=== PATIENT | male | born 1960 | race African-American/Black ===

== ENCOUNTER 2021-01-18 00:46 | Emergency (ER) | payer OTHER ==
[~2021-01-18] VITALS: Ht 172.7 cm; Wt 83.3 kg
[2021-01-18] MEDS ORDERED: SYNT175T2 PO (00:57)
[2021-01-18] MEDS ORDERED: NOXI1TAB PO (00:58)
[2021-01-18] MEDS ORDERED: NS 1,000 ML IV ONE ×2 (01:00→02:20)
[2021-01-18 01:28] LABS: VENOUS BASE EXCESS -1.7 (-2.0-2.0); VENOUS HCO3 25.2 MEQ/L (23.0-27.0); VENOUS PARTIAL PRESSURE CO2 53.3 mmHg (38.0-50.0); VENOUS PARTIAL PRESSURE O2 169.1 mmHg (30.0-50.0); VENOUS PH 7.293 UNITS (7.330-7.430); VENOUS STANDARD HCO3 23.1 MEQ/L; VENOUS TOTAL CO2 26.9 MEQ/L (24.0-28.0)
[2021-01-18 01:33] LABS: HEMATOCRIT 33.4 % (42.0-52.0); HEMOGLOBIN 9.9 g/dl (13.5-17.5); MEAN CORPUSCULAR HEMOGLOBIN 25.4 pg (27.0-33.0); MEAN CORPUSCULAR HGB CONC 29.6 g/dl (32.0-36.5); MEAN CORPUSCULAR VOLUME 85.6 fl (80.0-96.0); PLATELET COUNT, AUTOMATED 157 10^3/uL (150-450); WHITE BLOOD COUNT 10.8 10^3/uL (4.0-10.0)
[2021-01-18 01:42] LABS: OSMOLALITY SERUM 295 MOSM/KG (275-295)
[2021-01-18 01:43] LABS: LYMPHOCYTES 13 % (16-44); NEUTROPHILS 87 % (28-66)
[2021-01-18 01:44] LABS: ANISOCYTOSIS 2+; PLATELET ESTIMATE NORMAL (NORMAL)
--- NOTE | 2021-01-18 01:44 | REPVR ---
PROCEDURE INFORMATION: Exam: CT Head Without Contrast Exam date and time: 01/18/2021 1:28 AM Age: 60 years old Clinical indication: Injury or trauma; Fall; Blunt trauma (contusions or hematomas); Additional info: Overdose, fall TECHNIQUE: Imaging protocol: Computed tomography of the head without contrast. Radiation optimization: All CT scans at this facility use at least one of these dose optimization techniques: automated exposure control; mA and/or kV adjustment per patient size (includes targeted exams where dose is matched to clinical indication); or iterative reconstruction. COMPARISON: No relevant prior studies available. FINDINGS: There is no evidence of acute intracranial hemorrhage, extra axial fluid collection or hematoma. There is no midline shift or herniation. The ventricles are not dilated. Septum cavum pellucidum et vergae incidentally noted. No evidence of pneumocephalus. No CT findings are seen at the current time to suggest changes of acute territorial vascular infarction. Note is made however, that CT changes, may lag clinical findings in acute CVA. If clinically indicated, consideration could be given to MRI with diffusion weighted imaging, due to its greater sensitivity, for early detection of acute ischemic change. No evidence of regional or global edema. Incidental intracranial calcifications are noted. No pericranial scalp hematoma is seen. No acute cranial vault fracture is seen. There is mucosal thickening and partial opacification of ethmoid air cells bilaterally. Mild mucosal thickening seen within the visualized maxillary and sphenoid sinuses. No fluid is seen within the visualized mastoid air cells. The visualized middle ear cavities are not opacified. IMPRESSION: No evidence of an acute intracranial injury. Other incidental findings discussed above. Electronically signed by: Agus Waddell On 01/18/2021 01:43:54 AM
--- NOTE | 2021-01-18 01:50 | REPVR ---
PROCEDURE INFORMATION: Exam: CT Cervical Spine Without Contrast Exam date and time: 01/18/2021 1:28 AM Age: 60 years old Clinical indication: Injury or trauma; Fall; Blunt trauma; Additional info: Overdose, fall TECHNIQUE: Imaging protocol: Computed tomography images of the cervical spine without contrast. Radiation optimization: All CT scans at this facility use at least one of these dose optimization techniques: automated exposure control; mA and/or kV adjustment per patient size (includes targeted exams where dose is matched to clinical indication); or iterative reconstruction. COMPARISON: No relevant prior studies available. FINDINGS: There is straightening and slight reversal of cervical lordosis. There is minimal anterolisthesis of C2 with respect to C3 and minimal retrolisthesis of C3 upon C4. This may be positional and or related to degenerative change. Remaining posterior alignment is within normal limits. Cervical vertebral body heights and prevertebral soft tissues are within normal limits. The facet joints are not subluxed or dislocated. No acute fracture of the cervical spine is seen. Degenerative changes of the cervical spine are noted with mild to moderate disc space loss, prominent anterior osteophytes, bony sclerosis, posterior bony ridging and facet arthropathy. There is anterior epidural gas at the C4/C5 level, likely within displaced degenerative disc. Disc displacements are not reliably assessed by this exam, however there appears to be moderate-sized posterior central displacements at the C3/C4 level and C4/C5 level. These findings and bony proliferative changes likely result in varying degrees of central canal and foraminal compromise at multiple levels. If there are neurologic symptoms, further evaluation by MRI is advised as clinically appropriate. Although incompletely assessed, there is dental decay with maxillary molar periapical lucencies and bone resorption noted. Follow-up with dental exam is advised. Pleural thickening, parenchymal fibrotic changes and emphysematous changes noted at the visualized lung apices. Intravenous gas is noted, likely iatrogenic from IV. IMPRESSION: No acute fracture of the cervical spine. Minimal cervical malalignments noted, likely secondary to degenerative change and reversal of lordosis. Other findings discussed above. Electronically signed by: Agus Waddell On 01/18/2021 01:50:15 AM
[2021-01-18 02:02] LABS: ACETAMINOPHEN LEVEL < 2.0 UG/ML (10.0-30.0); ALBUMIN 3.4 GM/DL (3.2-5.2); ALT/SGPT 39 U/L (12-78); BILIRUBIN,DIRECT < 0.1 MG/DL (0.0-0.2); BILIRUBIN,TOTAL 0.3 MG/DL (0.2-1.0); BLOOD UREA NITROGEN 13 MG/DL (7-18); CALCIUM LEVEL 8.3 MG/DL (8.5-10.1); CARBON DIOXIDE LEVEL 25 MEQ/L (21-32); CHLORIDE LEVEL 111 MEQ/L (98-107); CPK CREATINE PHOSPHOKINASE 398 U/L (39-308); CREATININE FOR GFR 1.33 MG/DL (0.70-1.30); ETHYL ALCOHOL (ETHANOL) < 0.003 % (0.000-0.010); GLOMERULAR FILTRATION RATE 58.8 (>56); GLUCOSE, FASTING 104 MG/DL (70-100); POTASSIUM SERUM 3.4 MEQ/L (3.5-5.1); SALICYLATE LEVEL < 1.7 MG/DL (5.0-30.0); SODIUM LEVEL 144 MEQ/L (136-145); TOTAL PROTEIN 6.6 GM/DL (6.4-8.2)
[2021-01-18 02:37] LABS: AMPHETAMINES LEVEL URINE NEGATIVE (NEGATIVE); BARBITURATES URINE NEGATIVE (NEGATIVE); BENZODIAZEPINES URINE NEGATIVE (NEGATIVE); CANNABINOIDS URINE NEGATIVE (NEGATIVE); COCAINE METABOLITE URINE NEGATIVE (NEGATIVE); METHADONE URINE NEGATIVE (NEGATIVE); OPIATES URINE NEGATIVE (NEGATIVE); PHENCYCLIDINE URINE NEGATIVE (NEGATIVE)
[2021-01-18 05:16] VITALS: BP 127/65
--- NOTE | 2021-01-19 16:42 | ECGEPIP ---
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
== END 2021-01-18 05:35 | disposition home or self-care (01) ==
LOC: M ED 00:46
DX: F19.920 Other psychoactive substance use, unspecified with intoxication, uncomplicated (principal); R00.1 Bradycardia, unspecified; E03.9 Hypothyroidism, unspecified; Z79.890 Hormone replacement therapy